=== PATIENT | female | born 1985 | race Caucasian/White ===

== ENCOUNTER → 2020-09-13 08:40 | Outpatient (BNVA) | payer OTHER, SELFPAY | PROVIDERS: PCP Internal Medicine; Visit Provider Surgery ==

== ENCOUNTER 2020-09-22 08:58 | Outpatient (REF) | payer OTHER, SELFPAY ==
[2020-09-13 20:11] VITALS: BMI 56.0
--- NOTE | 2020-09-21 10:33 | P.CONAN_ITS ---
Documented by User: Katlin Loja 09/21/20 10:34 HPI - Anesthesia Eval Consult details Narrative: 35yo F for Upper Endoscopy PMFSH Active Problems Active Problems: All Active Problems (Updated 09/13/20 @ 20:08 by Ambar Monet RN) Preoperative examination (Acute) Shortness of breath (Acute) BMI 50.0-59.9, adult (Acute) Morbid obesity due to excess calories (Acute) Past Medical History Medical History Abnormal endoscopy of upper gastrointestinal tract Anxiety Arthritis Back pain Depression GERD (gastroesophageal reflux disease) Morbid obesity due to excess calories Family History Family History Father Narcolepsy Narcolepsy and cataplexy Pulmonary embolism Mother COPD (chronic obstructive pulmonary disease) Asthma Brother Drug abuse Brother No problems noted. Daughter No problems noted. Son No problems noted. Maternal Aunt Lung cancer Surgical History Surgical History History of endoscopy History of removal of laparoscopic gastric banding device History of tubal ligation Hx of section Hx of laparoscopic gastric banding Status post laser ablation of incompetent vein Social History Social History Alcohol intake: current Alcohol intake frequency: a few times a week Alcohol type: wine Smoking Status: Never smoker Second Hand Smoke Exposure: No Use of substances other than those prescribed or required for medical reasons: No Advance Directives: No Advance Directives Information Provided: No Advance Directives on File: No Recently lost weight without trying: No Meds Allergies Allergy/AdvReac Type Severity Reaction Status Date / Time erythromycin base Allergy Severe VOMITING Verified 09/13/20 09:50 [ERYTHROMYCIN BASE] amoxicillin [AMOXICILLIN] Allergy Unknown RASH, hives Verified 09/13/20 09:50 almond Allergy Abdominal Verified 09/13/20 20:10 Pain banana Allergy Abdominal Verified 09/13/20 20:10 Pain pineapple Allergy Abdominal Verified 09/13/20 20:10 Pain milk AdvReac Abdominal Verified 09/13/20 20:10 Pain Azithromycin Allergy Unknown vomiting Uncoded 09/13/20 09:50 Erythromycin Allergy Unknown vomiting Uncoded 09/13/20 09:50 Home Medications Medication Instructions Recorded Confirmed Last Taken Type cetirizine 10 mg tablet 10 mg PO DAILY 09/13/20 09/13/20 Unknown History escitalopram oxalate 5 mg tablet 15 mg PO DAILY 09/13/20 09/13/20 Unknown History pantoprazole 20 mg tablet,delayed 20 mg PO DAILY 09/13/20 09/22/20 09/22/20 05:15 History release Exam Exam Date and Time: September 21, 2020 1033 Height,Weight and Vital Signs: Height 5 ft 3 in Weight 143.335 kg Assessment and Plan Assessment Anesthesia Assessment: Chart Reviewed Documented by User: Jefry Ambriz 09/22/20 07:16 [facility] Past Medical History Medical History Abnormal endoscopy of upper gastrointestinal tract Anxiety Arthritis Back pain Depression GERD (gastroesophageal reflux disease) Morbid obesity due to excess calories Family History Family History Father Narcolepsy Narcolepsy and cataplexy Pulmonary embolism Mother COPD (chronic obstructive pulmonary disease) Asthma Brother Drug abuse Brother No problems noted. Daughter No problems noted. Son No problems noted. Maternal Aunt Lung cancer Family history of problems with anesthesia: No Surgical History Surgical History History of endoscopy History of removal of laparoscopic gastric banding device History of tubal ligation Hx of section Hx of laparoscopic gastric banding Status post laser ablation of incompetent vein History of Problems with Anesthesia: Yes (PONV) Social History Social History Alcohol intake: current Alcohol intake frequency: a few times a week Alcohol type: wine Smoking Status: Never smoker Second Hand Smoke Exposure: No Use of substances other than those prescribed or required for medical reasons: No Advance Directives: No Advance Directives Information Provided: No Advance Directives on File: No Recently lost weight without trying: No Meds Allergies Allergy/AdvReac Type Severity Reaction Status Date / Time erythromycin base Allergy Severe VOMITING Verified 09/13/20 09:50 [ERYTHROMYCIN BASE] amoxicillin [AMOXICILLIN] Allergy Unknown RASH, hives Verified 09/13/20 09:50 almond Allergy Abdominal Verified 09/13/20 20:10 Pain banana Allergy Abdominal Verified 09/13/20 20:10 Pain pineapple Allergy Abdominal Verified 09/13/20 20:10 Pain milk AdvReac Abdominal Verified 09/13/20 20:10 Pain Azithromycin Allergy Unknown vomiting Uncoded 09/13/20 09:50 Erythromycin Allergy Unknown vomiting Uncoded 09/13/20 09:50 Home Medications Medication Instructions Recorded Confirmed Last Taken Type cetirizine 10 mg tablet 10 mg PO DAILY 09/13/20 09/13/20 Unknown History escitalopram oxalate 5 mg tablet 15 mg PO DAILY 09/13/20 09/13/20 Unknown History pantoprazole 20 mg tablet,delayed 20 mg PO DAILY 09/13/20 09/22/20 09/22/20 05:15 History release Exam Airway Mallampati Class: II TM Dist: <=3cm Neck ROM: Full Heart: ok Lungs: ok Assessment and Plan Assessment Anesthesia Assessment: Anesthesia Plan Discussed and Chart Reviewed Final Anesthetic Review NPO: Yes ASA Class: III Final Preanesthetic Review: No Changes in Pt Med Stat, Meds/Allgs Chart Reviewed, Consent Obtained/Reviewed and Anes Risks/Benef Reviewed Patient Risk: Intermediate Procedure Risk: Intermediate Anesthetic Plan Anesthetic Plan: MAC: Disposition: Standard PACU
--- NOTE | 2020-09-21 14:38 | MHC.SHP ---
Pre-Procedural Eval Section B Chief Complaint: reflux Allergies: Allergies Allergy/AdvReac Type Severity Reaction Status Date / Time erythromycin base Allergy Severe VOMITING Verified 09/13/20 09:50 [ERYTHROMYCIN BASE] amoxicillin [AMOXICILLIN] Allergy Unknown RASH, hives Verified 09/13/20 09:50 almond Allergy Abdominal Verified 09/13/20 20:10 Pain banana Allergy Abdominal Verified 09/13/20 20:10 Pain pineapple Allergy Abdominal Verified 09/13/20 20:10 Pain milk AdvReac Abdominal Verified 09/13/20 20:10 Pain Azithromycin Allergy Unknown vomiting Uncoded 09/13/20 09:50 Erythromycin Allergy Unknown vomiting Uncoded 09/13/20 09:50 Plan I have reviewed the history and physical and performed a pertinent physical examination on my patient. No changes have occurred unless specified.
--- NOTE | ~2020-09-22 | XR_ITS ---
EXAMINATION: XR CHEST CLINICAL INFORMATION: Shortness of breath COMPARISON: None TECHNIQUE: 2 views of the chest were obtained. FINDINGS: The lungs are clear. The vascularity is normal. There is no pneumothorax, airspace consolidation or groundglass opacity. The costophrenic sulci are clear. There is no effusion. The heart is normal in size. The hilar and mediastinal contours are unremarkable. There is borderline dextrocurvature midthoracic spine. XR/XR chest 2V IMPRESSION: Unremarkable examination.
[2020-09-22 06:41] VITALS: BP 156/94; PULSE 83; RESP 16; TEMP 35.7; O2SAT 98
[2020-09-22] MEDS: Lactated Ringers 1,000 ML 100 ML IVCONT (06:56)
[2020-09-22 08:04] VITALS: BP 140/86; PULSE 80; RESP 18; TEMP 36.5; O2SAT 97
--- NOTE | 2020-09-22 08:06 | PM.OP ---
Brief Operative Note Date of Service: 09/22/20 Pre-op diagnosis: Weight gain after gastric band removal Post-op diagnosis: other (Same and antral gastritis) Procedure: Esophagogastroduodenoscopy and antral biopsy x2 Implants: None Surgeon: Lacy Garcia MD Anesthesia: MAC (Propofol given by anesthesiologist) Estimated blood loss (mL): 1 Pathology: other (Antral biopsy x2) Condition: stable Disposition: PACU
[2020-09-22 08:19] VITALS: BP 138/87; PULSE 69; RESP 17; TEMP 36.5; O2SAT 100
--- NOTE | 2020-09-22 08:22 | OP_ITS ---
SURGEON: Lacy Garcia MD PREOPERATIVE DIAGNOSIS: POSTOPERATIVE DIAGNOSIS: PROCEDURE PERFORMED: Esophagogastroduodenoscopy and antral biopsy x2. ESTIMATED BLOOD LOSS: COMPLICATIONS: None. ANESTHESIA: Total intravenous anesthesia with propofol given by the anesthesiologist. ASSISTANTS: SPECIMENS: PRE-PROCEDURE DIAGNOSIS: Weight gain after removal of gastric band. POSTPROCEDURE DIAGNOSIS: Antral gastritis. FINDINGS: There were no evidence of gastric band erosion or mucosal lesions or hiatal hernia. There were some antral gastritis with erythema and granularity of the antrum. DESCRIPTION OF PROCEDURE: The patient was brought to the operating room, placed on the stretcher in the left lateral decubitus position. A safety time-out was performed. A bite block was placed between the teeth. Total intravenous anesthesia was administered using propofol by the anesthesiologist. Once the patient was adequately sedated, a gastroscope was placed into posterior oropharynx, passed on the esophagus, evaluating esophageal mucosa which was normal. The GE junction was located at 42 cm from the incisors. There was no evidence of hiatal hernia. Gastroscope was easily passed into the stomach and then retroflexed. There was no evidence of hiatal hernia. No mucosal lesions were noted proximally. The entirety of the gastric mucosa was evaluated and was normal with the exception of some increased erythema and granularity at the antrum, which was biopsied x2. The gastroscope was passed to the pre-pyloric region through the pylorus down to the 3rd portion of duodenum, all of which was normal. All of these portions of the upper endoscopy were documented using photo documentation. Gastroscope was retracted back to the stomach. Stomach was desufflated. The gastroscope was removed without difficulty. The patient tolerated the procedure well and was sent to recovery room in stable condition. CHEF: None. MD KAT Peña/MODL / [id number]
--- NOTE | 2020-09-22 09:15 | ECG_ITS ---
Test Reason : SOB Blood Pressure : / mmHG Vent. Rate : 060 BPM Atrial Rate : 060 BPM P-R Int : 142 ms QRS Dur : 082 ms QT Int : 432 ms P-R-T Axes : 020 044 037 degrees QTc Int : 432 ms Normal sinus rhythm Normal ECG No previous ECGs available Referred By: Lacy Garcia Electronically Signed By:Dwayne Guerra
[2020-09-22 09:50] LABS: MANUAL DIFF FLAG NO
[2020-09-22 10:04] LABS: Basophils Absolute Auto 0.1 X10*3/uL (0.0-0.2); Basophils Percent Auto 0.9 % (0-2); Eosinophils Absolute Auto 0.2 X10*3/uL (0.0-0.4); Eosinophils Percent Auto 2.7 % (0-4); Hematocrit 37.6 % (37-47); Hemoglobin 12.1 g/dl (12.0-16.0); Imm Gran Abs Auto 0.02 X10*3/uL (0.00-0.03); Imm Gran Pct Auto 0.4 % (0.0-0.4); Lymphocytes Absolute Auto 1.3 X10*3/uL (1.2-4.9); Lymphocytes Percent Auto 23.7 % (20-40); Mean Corpuscular HGB Conc 32.2 g/dl (31.0-35.0); Mean Corpuscular Hemoglobin 28.5 pg (27.0-33.0); Mean Corpuscular Volume 88.7 fL (80-98); Mean Platelet Volume 10.2 fL (9.4-12.3); Monocytes Absolute Auto 0.4 X10*3/uL (0.1-1.2); Monocytes Percent Auto 7.4 % (2-11); Neutrophils Absolute Auto 3.7 X10*3/uL (2.0-8.3); Neutrophils Percent Auto 64.9 % (45-73); Platelet Count 290 X10*3/uL (160-400); Red Blood Count 4.24 X10*6/uL (4.20-5.50); Red Cell Distribution Width 13.2 % (11.0-16.0); White Blood Count 5.7 X10*3/uL (4.8-10.8)
[2020-09-22 10:34] LABS: Alanine Aminotransferase 104 U/L (0-31); Alkaline Phosphatase 83 U/L (39-117); Anion Gap 10 (12-20); Aspartate Amino Transferase 82 U/L (5-31); Bilirubin Total 0.5 mg/dL (0.0-1.0); Blood Urea Nitrogen 15 mg/dL (9-16); C Reactive Protein 2.98 mg/dL (< or = 0.50); Calcium 9.1 mg/dL (8.4-10.2); Carbon Dioxide 29 mmol/L (22-29); Chloride 103 mmol/L (96-108); Cholesterol 219 mg/dL; Estimated Glomerular Filt Rate > 60; Glucose Fasting 103 mg/dL (60-99); HDL Cholesterol 63 mg/dL; Iron 101 mcg/dL (30-160); LDL Cholesterol Calculated 128 mg/dl; Percent Iron Saturation 25 % (15-50); Potassium 4.4 mmol/L (3.3-5.1); Sodium 138 mmol/L (135-145); Total Iron Binding Capacity 403 mcg/dL (228-428); Total Protein 6.9 g/dL (6.5-8.0); Triglycerides 143 mg/dL; Unsaturated Iron Binding 302 ug/dL
[2020-09-22 10:53] LABS: Vitamin B12 515 pg/mL (200-900)
[2020-09-22 10:54] LABS: Thyroid Stimulating Hormone 2.74 uIU/mL (0.32-4.0); Vitamin D 25-OH Total 20.8 ng/mL (>30)
[2020-09-24 10:37] LABS: Calcium (PTHI) 9.1 mg/dL (8.6-10.2); PTHI 53 pg/mL (14-64)
[2020-09-25 13:02] LABS: Vitamin B1 <6 nmol/L (8-30)
[2020-09-27 02:31] LABS: Vitamin A 54 mcg/dL (38-98)
[2020-09-28 00:52] LABS: Zinc 70 mcg/dL (60-130)
== END 2020-09-22 08:59 | disposition home or self-care (01) ==
LOC: HO.MDS 08:58
PROVIDERS: PCP Internal Medicine; Visit Provider Surgery
PROC: 0DJ08ZZ Inspection of Upper Intestinal Tract, Via Natural or Artificial Opening Endoscopic (ICD-10-PCS; CPT 43235; principal; 2020-09-22 07:30)
DX: Z01.818 Encounter for other preprocedural examination (principal); K29.50 Unspecified chronic gastritis without bleeding; K21.9 Gastro-esophageal reflux disease without esophagitis; R06.02 Shortness of breath; E66.01 Morbid (severe) obesity due to excess calories; Z68.43 Body mass index [BMI] 50.0-59.9, adult; Z88.1 Allergy status to other antibiotic agents; Z88.0 Allergy status to penicillin; Z91.018 Allergy to other foods; Z98.84 Bariatric surgery status; Z98.890 Other specified postprocedural states; Z79.899 Other long term (current) drug therapy
CPT/HCPCS: 43239; 36415; 71046; 80053; 80061; 82306; 82607; 83540; 83970; 84425; 84443; 84590; 84630; 85025; 86140; 88305; 88342; 93005; J2250; J3010

== ENCOUNTER → 2020-09-27 08:30 | Outpatient (BNVA) | payer OTHER, SELFPAY | PROVIDERS: PCP Internal Medicine; Visit Provider Surgery ==

== ENCOUNTER → 2020-10-11 08:10 | Outpatient (BNVA) | payer OTHER, SELFPAY | PROVIDERS: PCP Internal Medicine; Visit Provider Dietitian, Registered ==

== ENCOUNTER 2020-10-25 13:47 | Outpatient (REF) | payer OTHER, SELFPAY ==
[2020-10-25 15:42] LABS: Vitamin D 25-OH Total 35.7 ng/mL (>30)
[2020-10-29 11:42] LABS: Vitamin B1 121 nmol/L (8-30)
== END 2020-10-25 13:48 | disposition home or self-care (01) ==
LOC: HO.LAB 13:47
PROVIDERS: PCP Internal Medicine; Visit Provider Surgery
DX: Z01.818 Encounter for other preprocedural examination (principal); E51.9 Thiamine deficiency, unspecified; E55.9 Vitamin D deficiency, unspecified; Z79.899 Other long term (current) drug therapy; R06.02 Shortness of breath; K59.00 Constipation, unspecified; R12 Heartburn; Z71.3 Dietary counseling and surveillance; E66.01 Morbid (severe) obesity due to excess calories; Z68.43 Body mass index [BMI] 50.0-59.9, adult
CPT/HCPCS: 36415; 82306; 84425

== ENCOUNTER → 2020-11-01 09:36 | Outpatient (BNVA) | payer OTHER, SELFPAY | PROVIDERS: PCP Internal Medicine; Visit Provider Dietitian, Registered ==

== ENCOUNTER → 2020-11-15 14:28 | Outpatient (BNVA) | payer OTHER, SELFPAY | PROVIDERS: PCP Internal Medicine; Visit Provider Surgery ==

== ENCOUNTER → 2020-11-29 11:01 | Outpatient (BNVA) | payer OTHER, SELFPAY | PROVIDERS: PCP Internal Medicine; Visit Provider Surgery ==

== ENCOUNTER → 2020-12-20 14:33 | Outpatient (BNVA) | payer OTHER, SELFPAY | PROVIDERS: PCP Internal Medicine; Visit Provider Surgery ==

== ENCOUNTER → 2020-12-28 09:58 | Outpatient (BNVA) | payer OTHER, SELFPAY | PROVIDERS: PCP Internal Medicine; Visit Provider Surgery ==

== ENCOUNTER → 2021-01-19 09:30 | Outpatient (BNVA) | payer OTHER, SELFPAY | PROVIDERS: PCP Internal Medicine; Visit Provider Physician Assistant ==

== ENCOUNTER → 2021-01-25 09:42 | Outpatient (BNVA) | payer OTHER, SELFPAY | PROVIDERS: PCP Internal Medicine; Visit Provider Surgery ==

== ENCOUNTER → 2021-02-04 13:42 | Outpatient (BNVA) | payer OTHER, SELFPAY | PROVIDERS: PCP Internal Medicine; Visit Provider Surgery ==

== ENCOUNTER 2021-02-09 13:16 | Inpatient (IN) | payer OTHER, SELFPAY ==
[2021-01-31 09:26] VITALS: BMI 50.1
--- NOTE | 2021-02-04 13:15 | ECG_ITS ---
Test Reason : R06.02 Blood Pressure : / mmHG Vent. Rate : 081 BPM Atrial Rate : 081 BPM P-R Int : 138 ms QRS Dur : 082 ms QT Int : 396 ms P-R-T Axes : 066 038 035 degrees QTc Int : 460 ms Normal sinus rhythm Possible Left atrial enlargement Borderline ECG When compared with ECG of 22-SEP-2020 09:20, No significant change was found Referred By: Lacy Garcia Electronically Signed By:ERVIN LYONS MD
[2021-02-04 14:02] LABS: MANUAL DIFF FLAG NO
[2021-02-04 14:08] LABS: Basophils Percent Auto 0.5 % (0-2); Eosinophils Absolute Auto 0.2 X10*3/uL (0.0-0.4); Eosinophils Percent Auto 1.9 % (0-4); Hematocrit 38.5 % (37-47); Hemoglobin 12.4 g/dl (12.0-16.0); Imm Gran Abs Auto 0.07 X10*3/uL (0.00-0.03); Imm Gran Pct Auto 0.8 % (0.0-0.4); Lymphocytes Absolute Auto 1.6 X10*3/uL (1.2-4.9); Mean Corpuscular HGB Conc 32.2 g/dl (31.0-35.0); Mean Corpuscular Hemoglobin 28.1 pg (27.0-33.0); Mean Corpuscular Volume 87.1 fL (80-98); Mean Platelet Volume 10.4 fL (9.4-12.3); Monocytes Absolute Auto 0.6 X10*3/uL (0.1-1.2); Monocytes Percent Auto 6.5 % (2-11); Neutrophils Absolute Auto 6.2 X10*3/uL (2.0-8.3); Neutrophils Percent Auto 71.3 % (45-73); Platelet Count 250 X10*3/uL (160-400); Red Blood Count 4.42 X10*6/uL (4.20-5.50); Red Cell Distribution Width 12.9 % (11.0-16.0); White Blood Count 8.6 X10*3/uL (4.8-10.8)
[2021-02-04 14:12] LABS: Prothrombin Time 11.5 SEC (9.9-13.0)
[2021-02-04 14:15] LABS: Glucose Urine UA NEG (NEG); Leukocyte Esterase Urine NEG (NEG); Nitrite Urine NEG (NEG); Partial Thromboplastin Time 36.5 SEC (24.1-38.0); Specific Gravity - Urine 1.025 (1.005-1.025); Urine Blood NEG (NEG); Urine Ketones NEG (NEG); Urine Protein NEG (NEG-TRACE)
[2021-02-04 14:18] LABS: Appearance Urine HAZY; Color Urine YELLOW
[2021-02-04 14:19] LABS: UPreg QC Valid YES; Urine Pregnancy NEGATIVE (NEGATIVE)
[2021-02-04 14:29] LABS: Albumin Level 4.2 g/dL (3.5-5.0); Anion Gap 15 (12-20); Blood Urea Nitrogen 13 mg/dL (9-16); Calcium 9.6 mg/dL (8.4-10.2); Carbon Dioxide 25 mmol/L (22-29); Chloride 103 mmol/L (96-108); Creatinine Clr Calc Pharmacy 140.3; Estimated Glomerular Filt Rate > 60; Glucose Random 85 mg/dL (60-115); Potassium 4.3 mmol/L (3.3-5.1); Sodium 139 mmol/L (135-145)
--- NOTE | 2021-02-08 08:54 | P.CONAN_ITS ---
Documented by User: Katlin Loja 02/08/21 08:56 HPI - Anesthesia Eval Consult details Narrative: 36yo F for Gastrectomy Sleeve, EGD, Poss Diaphragmatic Hernia, Poss Ventral Hernia, Poss open PMFSH Active Problems Active Problems: All Active Problems (Updated 01/31/21 @ 09:35 by Manjula Sinclair) Preoperative examination (Acute) Shortness of breath (Acute) BMI 50.0-59.9, adult (Acute) Vitamin D deficiency (Acute) Vitamin B1 deficiency (Acute) Morbid obesity due to excess calories (Acute) Past Medical History Medical History Anxiety Arthritis Back pain COVID-19 vaccine series completed Depression GERD (gastroesophageal reflux disease) Morbid obesity due to excess calories Family History Family History Father Narcolepsy Narcolepsy and cataplexy Pulmonary embolism Mother COPD (chronic obstructive pulmonary disease) Asthma Brother Drug abuse Brother No problems noted. Daughter No problems noted. Son No problems noted. Maternal Aunt Lung cancer Family history of problems with anesthesia: No Surgical History Surgical History H/O LEEP History of endoscopy History of esophagogastroduodenoscopy (EGD) History of removal of laparoscopic gastric banding device History of tubal ligation Hx of section Hx of laparoscopic gastric banding Status post laser ablation of incompetent vein History of Problems with Anesthesia: Yes (PONV) Social History Social History Are you a primary senior care assistant to a significant other at home: No Do you presently have visiting nurse or other home services: No Alcohol intake: current Alcohol intake frequency: a few times a week Alcohol type: wine Patient Tobacco Use Status: Never used Tobacco Second Hand Smoke Exposure: No Use of substances other than those prescribed or required for medical reasons: No Meds Allergies Allergy/AdvReac Type Severity Reaction Status Date / Time erythromycin base Allergy Severe VOMITING Verified 01/31/21 08:40 [ERYTHROMYCIN BASE] amoxicillin [AMOXICILLIN] Allergy Unknown RASH, hives Verified 01/31/21 08:40 almond Allergy Abdominal Verified 01/31/21 08:40 Pain banana Allergy Abdominal Verified 01/31/21 08:40 Pain pineapple Allergy Abdominal Verified 01/31/21 08:40 Pain Azithromycin Allergy Unknown vomiting Uncoded 01/31/21 08:40 Home Medications Medication Instructions Recorded Confirmed Last Taken Type cetirizine 10 mg tablet 10 mg PO DAILY 09/13/20 01/31/21 Unknown History pantoprazole 20 mg tablet,delayed 20 mg PO DAILY 09/13/20 01/31/21 02/09/21 06:30 History release escitalopram oxalate 1 tab PO DAILY 01/31/21 01/31/21 Unknown History escitalopram oxalate 1 tab PO DAILY 01/31/21 01/31/21 Unknown History Exam Exam Date and Time: February 08, 2021 0854 Height,Weight and Vital Signs: Height 5 ft 3 in Weight 128.367 kg Pertinent Lab Results Pertinent Lab Results: Laboratory Tests 02/04/21 02/04/21 02/04/21 13:20 13:20 13:20 WBC 8.6 RBC 4.42 Hgb 12.4 Hct 38.5 MCV 87.1 MCH 28.1 MCHC 32.2 RDW 12.9 Plt Count 250 MPV 10.4 Immature Gran % (Auto) 0.8 H Neut % (Auto) 71.3 Lymph % (Auto) 19.0 L Shackelford % (Auto) 6.5 Eos % (Auto) 1.9 Baso % (Auto) 0.5 Lymph # (Auto) 1.6 Shackelford # (Auto) 0.6 Eos # (Auto) 0.2 Baso # (Auto) 0.0 Abs Immat Gran (auto) 0.07 H Absolute Neuts (auto) 6.2 Absolute Nucleated RBC 0.000 Nucleated RBC % (auto) 0.0 PT 11.5 INR 1.0 APTT 36.5 Sodium Potassium Chloride Carbon Dioxide Anion Gap BUN Creatinine Estim Creat Clear Calc Estimated GFR Random Glucose Calcium Albumin Urine Color YELLOW Urine Appearance HAZY Urine pH 6.0 Ur Specific Cutler 1.025 Urine Protein NEG Urine Glucose (UA) NEG Urine Ketones NEG Urine Blood NEG Urine Nitrite NEG Ur Leukocyte Esterase NEG Urine Test Blood Type Antibody Screen 02/04/21 02/04/21 02/04/21 13:20 13:20 13:20 WBC RBC Hgb Hct MCV MCH MCHC RDW Plt Count MPV Immature Gran % (Auto) Neut % (Auto) Lymph % (Auto) Shackelford % (Auto) Eos % (Auto) Baso % (Auto) Lymph # (Auto) Shackelford # (Auto) Eos # (Auto) Baso # (Auto) Abs Immat Gran (auto) Absolute Neuts (auto) Absolute Nucleated RBC Nucleated RBC % (auto) PT INR APTT Sodium 139 Potassium 4.3 Chloride 103 Carbon Dioxide 25 Anion Gap 15 BUN 13 Creatinine 0.71 Estim Creat Clear Calc 140.3 Estimated GFR > 60 Random Glucose 85 Calcium 9.6 Albumin 4.2 Urine Color Urine Appearance Urine pH Ur Specific Cutler Urine Protein Urine Glucose (UA) Urine Ketones Urine Blood Urine Nitrite Ur Leukocyte Esterase Urine Test NEGATIVE Blood Type B Positive Antibody Screen NEGATIVE Narrative Narrative: EKG 02/2021 Vent. Rate : 081 BPM Atrial Rate : 081 BPM P-R Int : 138 ms QRS Dur : 082 ms QT Int : 396 ms P-R-T Axes : 066 038 035 degrees QTc Int : 460 ms Normal sinus rhythm Possible Left atrial enlargement Borderline ECG When compared with ECG of 22-SEP-2020 09:20, No significant change was found Assessment and Plan Assessment Anesthesia Assessment: Chart Reviewed Documented by User: Emily Feliciano 02/09/21 10:11 [facility] Past Medical History Medical History Anxiety Arthritis Back pain COVID-19 vaccine series completed Depression GERD (gastroesophageal reflux disease) Morbid obesity due to excess calories Family History Family History Father Narcolepsy Narcolepsy and cataplexy Pulmonary embolism Mother COPD (chronic obstructive pulmonary disease) Asthma Brother Drug abuse Brother No problems noted. Daughter No problems noted. Son No problems noted. Maternal Aunt Lung cancer Surgical History Surgical History H/O LEEP History of endoscopy History of esophagogastroduodenoscopy (EGD) History of removal of laparoscopic gastric banding device History of tubal ligation Hx of section Hx of laparoscopic gastric banding Status post laser ablation of incompetent vein Social History Social History Are you a primary senior care assistant to a significant other at home: No Do you presently have visiting nurse or other home services: No Alcohol intake: current Alcohol intake frequency: a few times a week Alcohol type: wine Patient Tobacco Use Status: Never used Tobacco Second Hand Smoke Exposure: No Use of substances other than those prescribed or required for medical reasons: No Meds Allergies Allergy/AdvReac Type Severity Reaction Status Date / Time erythromycin base Allergy Severe VOMITING Verified 01/31/21 08:40 [ERYTHROMYCIN BASE] amoxicillin [AMOXICILLIN] Allergy Unknown RASH, hives Verified 01/31/21 08:40 almond Allergy Abdominal Verified 01/31/21 08:40 Pain banana Allergy Abdominal Verified 01/31/21 08:40 Pain pineapple Allergy Abdominal Verified 01/31/21 08:40 Pain Azithromycin Allergy Unknown vomiting Uncoded 01/31/21 08:40 Home Medications Medication Instructions Recorded Confirmed Last Taken Type cetirizine 10 mg tablet 10 mg PO DAILY 09/13/20 01/31/21 Unknown History pantoprazole 20 mg tablet,delayed 20 mg PO DAILY 09/13/20 01/31/21 02/09/21 06:30 History release escitalopram oxalate 1 tab PO DAILY 01/31/21 01/31/21 Unknown History escitalopram oxalate 1 tab PO DAILY 01/31/21 01/31/21 Unknown History Exam Airway Mallampati Class: II TM Dist: >3cm Neck ROM: Full Loose/Missing/Broken Teeth: No Heart: RRR Lungs: CTA Assessment and Plan Assessment Anesthesia Assessment: Anesthesia Plan Discussed and Chart Reviewed Final Anesthetic Review NPO: Yes ASA Class: III Final Preanesthetic Review: Meds/Allgs Chart Reviewed, Consent Obtained/Reviewed and Anes Risks/Benef Reviewed Patient Risk: Intermediate Procedure Risk: Intermediate Anesthetic Plan Anesthetic Plan: GA Disposition: Standard PACU
--- NOTE | 2021-02-08 12:58 | MHC.SHP ---
Pre-Procedural Eval Section A Date of Service: 02/08/21 Section B Chief Complaint: Morbid Severe Obesity Allergies: Allergies Allergy/AdvReac Type Severity Reaction Status Date / Time erythromycin base Allergy Severe VOMITING Verified 01/31/21 08:40 [ERYTHROMYCIN BASE] amoxicillin [AMOXICILLIN] Allergy Unknown RASH, hives Verified 01/31/21 08:40 almond Allergy Abdominal Verified 01/31/21 08:40 Pain banana Allergy Abdominal Verified 01/31/21 08:40 Pain pineapple Allergy Abdominal Verified 01/31/21 08:40 Pain Azithromycin Allergy Unknown vomiting Uncoded 01/31/21 08:40 Plan I have reviewed the history and physical and performed a pertinent physical examination on my patient. No changes have occurred unless specified.
[2021-02-09] VITALS (15 sets, daily range): BP systolic 128–190; BP diastolic 78–106; PULSE 74–109; RESP 14–20; TEMP 35.7–37; O2SAT 95–100
[2021-02-09] MEDS: Lactated Ringers 1,000 ML 100 ML IVCONT (09:12)
[2021-02-09 09:19] LABS: COVID-19 Test Negative (Negative); IDNOW Serial# 9DD0AD1C
--- NOTE | 2021-02-09 13:09 | P.BOP_ITS ---
Brief Operative Note Date of Service: 02/09/21 Pre-op diagnosis: morbid obesity BMI 50.1, previous history of gastric banding, gastroesophageal reflux disease Post-op diagnosis: other ( same and hiatal hernia) Procedure: laparoscopic sleeve gastrectomy, takedown of previous gastric fundoplication, hiatal hernia repair, Palomo block, and intraoperative endoscopy Implants: covidien natasha Surgeon: Lacy Garcia MD Anesthesia: GETA Was an Wood Grainer used for this Procedure?: No Wood Grainer: Myra Licona Estimated blood loss (mL): 20 Pathology: other ( partial gastrectomy) Condition: stable Disposition: PACU
--- NOTE | 2021-02-09 13:10 | W.PM.OPN ---
Operative Note Operative Note Date of Service: 02/09/21 Narrative: Patient was brought into the operating room and placed on the operating room table in the supine position. General anesthesia was induced. Normal DVT prophylaxis was instituted and the patient received 2 grams of cefotetan preoperatively. The abdomen was then prepped and draped in the normal sterile fashion. A safety time-out was performed. A mixture of 1% lidocaine with epinephrine and ?% Marcaine plain was used to anesthetize the planned incision site in the left upper quadrant. A #11 scalpel was used to make a 5 mm left upper quadrant transverse incision through which a veress needle was placed. Three pops were heard going through the fascia. A saline drop test was used to confirm that the veress needle was intraabdominal. An optiview technique was then used to place a 5mm port in the left upper quadrant. A 5 mm 30 degree laproscope was then placed through this port and the abdominal cavity was surveyed and was normal with the exception of a few omental adhesions to the lower abdominal wall. The patient was placed in reverse Trendelenburg positioning. A anastasiia liver retractor was then placed in the subxyphoid position and it was used to hold up the left lobe of the liver to the abdominal wall. There were adhesions of the underlying stomach to the overlying left lobe of the liver from previous gastric banding. The liver tractor was secured to the bed using the liver retractor plascencia. A DENNY block was then performed for pain control on the right side of the abdomen. A 5 mm port was placed in the right upper quadrant near the falciform ligament. A 12 mm port was then placed in the mid epigastrium. One additional 5 mm port was placed in the left upper quadrant just to the left of the placement of the first port. I then performed a DENNY block on the left side of the abdomen. I took down adhesions from the liver to the underlying stomach using the LigaSure device. I then opened up the previous tunnel from the gastric band thereby flattening out the stomach and undoing the previous gastric fundoplication. I then removed the epigastric fat pad; there was an about 2 cm anterior hiatal hernia noted. I reapproximated the left and right crura with a total of 2 stitches of 2-0 ethibond and a laparoscopic knot pusher. There was no residual hiatal hernia. I then opened up the angle of His. We then gained entry into the lesser sac about 4-5 cm from the pylorus. I had anesthesia place a 34 Kinyarwanda orogastric tube into the distal antrum to use as a sizing tool for gastric pouch size. I divided the short gastric vessels up to the angle of His. We then started the creation of the gastric pouch by firing a 60 mm purple load endostapler up the stomach about 4-5 cm from the pylorus. We completed the creation of the gastric pouch using a total of 5 firings of a 60 mm and 1 firing of a 45 mm purple load stapler. We had anesthesia remove the orogastric tube, then we clamped across the distal antrum using a fired 60 mm endostapler. We flattened the patient and then instilled normal saline surrounding the newly created staple line. I then performed an on-table endoscopy. I passed the gastroscopy into the posterior oropharynx and down the esophagus evaluating the esophageal mucosa which was normal. There was no evidence of hiatal hernia. I passed the gastroscope into the gastric pouch and insufflated the gastric pouch. There was healthy pink mucosa and no evidence of active bleeding. There was no evidence of leak on laparoscopy. I desufflated the gastric pouch and removed the endoscope. I removed the endostapler from the abdomen and suctioned the fluid from the left upper quadrant. I then removed the partial gastrectomy specimen through the epigastric 12 mm port site. I reapproximated the 12 mm port using a 0 maxon suture with a laparoscopic suture passer. I instilled local anesthetic into the fascial closure site and tied the suture down at a pressure of 8-10 mm of Hg. There was no residual fascial defect. We removed the liver retractor and the left upper quadrant 5 mm ports under direct visualization. There was no evidence of any active bleeding. I desufflated the abdomen through the last remaining port and removed the laparoscope and 5 mm port. We reapproximated all incisions with a 4-0 monocryl subcuticular stitch. We cleaned and dried the abdominal skin and applied dermabond skin glue. All count were correct at the end of the case. The patient was awake and in stable condition prior to extubation and transfer to the recovery room.
--- NOTE | 2021-02-09 13:22 | P.PNGS_ITS ---
Subjective Subjective Date of Service: 02/10/21 <Myra Licona PA-C - Last Filed: 02/09/21 13:29> 02/10/21 <Lacy Garcia MD - Last Filed: 02/10/21 09:36> Interval history: Patient is postop day 1. Status post laparoscopic sleeve gastrectomy and hiatal hernia repair doing well. Vital signs are within normal limits as well as postoperative laboratory values for postoperative day 1. patient is tolerating stage III diet without difficulty. She has been up and ambulating without difficulty and using her incentive spirometer. Pain is well controlled. On physical exam: Abdomen is soft obese nondistended mild appropriate incisional tenderness. Dermabond is in place. Extremities are warm well- perfused without edema or tenderness. Assessment and plan: This is a 36-year- old lady on postoperative day 1. Status post laparoscopic sleeve gastrectomy and hiatal hernia repair doing well. She will be discharged home to follow up me in the office in 2 weeks time frame. <Lacy Garcia MD - Last Filed: 02/10/21 09:36> Physical Exam Vital Signs: Vital Signs: Last Vital Signs Temp 98.1 F 02/09/21 13:11 Pulse 92 02/09/21 13:16 Resp 18 02/09/21 13:16 BP 147/86 H 02/09/21 13:16 Pulse Ox 100 02/09/21 13:16 Body Mass Index 50.1 <Myra Licona PA-C - Last Filed: 02/09/21 13:29> GI: Other: Abdomen is soft nondistended obese. Incisions are all clean and dry with Dermabond in place. There is mild appropriate incisional tenderness. <Lacy Garcia MD - Last Filed: 02/10/21 09:36> Extrem: Other: Nontender bilaterally without edema. <Lacy Garcia MD - Last Filed: 02/10/21 09:36> Progress Note: A&P Assessment and plan (1) Morbid obesity due to excess calories: Status: Acute <Myra Licona PA-C - Last Filed: 02/09/21 13:29> (2) Hiatal hernia: Status: Acute <Myra Licona PA-C - Last Filed: 02/09/21 13:29> (3) History of repair of hiatal hernia: Status: Acute <Myra Licona PA-C - Last Filed: 02/09/21 13:29> (4) S/P laparoscopic sleeve gastrectomy: Status: Acute <Myra Licona PA-C - Last Filed: 02/09/21 13:29> Assessment and Plan: This is a 36-year-old lady on postoperative day 1. Status post laparoscopic sleeve gastrectomy with hiatal hernia repair doing well. She will be discharged home to follow up with me in 2 weeks time frame. <Lacy Garcia MD - Last Filed: 02/10/21 09:36> Fall Risk Details Current Medications: Current Medications Generic Name Dose Route Start Last Admin Trade Name Freq PRN Reason Stop Dose Admin Famotidine 20 mg 02/09/21 21:00 Famotidine/Pf 20 Mg/2 Ml Vial IVPUSH BID GOKUL Lactated Ringer's 1,000 mls @ 125 mls/hr 02/09/21 13:15 Lr IVCONT .Q8H GOKUL Cefotetan Disodium 2 gm/ 50 mls @ 100 mls/hr 02/09/21 13:15 Sodium Chloride IV 02/09/21 13:44 POSTOP ONE Metoclopramide HCl 10 mg 02/09/21 13:15 Metoclopramide Hcl 10 Mg/2 Ml Vial IVPUSH Q6H PRN Nausea Ondansetron HCl 4 mg 02/09/21 13:15 Ondansetron Hcl 4 Mg/2 Ml Vial IVPUSH Q8H GOKUL Sodium Chloride 3 ml 02/09/21 16:00 0.9 % Sodium Chloride Flush 3 Ml Syringe IVFLUSH QSHIFT GOKUL <Myra Licona PA-C - Last Filed: 02/09/21 13:29> Time Spent With Patient Time: Total time spent is greater than 50% in coordination of care (as documented) at patient's floor/unit and/or counseling patient: <Myra Licona PA-C - Last Filed: 02/09/21 13:29> Time with patient: less than 15 minutes <Lacy Garcia MD - Last Filed: 02/10/21 09:36> Procedures Date of Service Date of Service: 02/10/21 <Lacy Garcia MD - Last Filed: 02/10/21 09:36> Quality Stroke Does the patient have a stroke diagnosis?: No <Lacy Garcia MD - Last Filed: 02/10/21 09:36> VTE Prior VTE?: No <Lacy Garcia MD - Last Filed: 02/10/21 09:36> VTE Risk Level:: Surgical - moderate <Lacy Garcia MD - Last Filed: 02/10/21 09:36> VTE Device Contraindication: N/A - Device Ordered <Lacy Garcia MD - Last Filed: 02/10/21 09:36> VTE Drug Contraindication: Treatment Not Indicated <Lacy Garcia MD - Last Filed: 02/10/21 09:36>
--- NOTE | 2021-02-09 13:29 | P.DS_ITS ---
DS: Providers Provider Date of Service: 02/10/21 Primary care physician: Wood Bowman MD DS: Diagnosis Discharge Diagnosis (1) Morbid obesity due to excess calories: Status: Acute (2) Hiatal hernia: Status: Acute (3) History of repair of hiatal hernia: Status: Acute (4) S/P laparoscopic sleeve gastrectomy: Status: Acute DS: Medications Discharge Medications Home Medications: Home Medications Medication Instructions Recorded Confirmed cetirizine 10 mg tablet 10 mg PO DAILY 09/13/20 01/31/21 pantoprazole 20 mg tablet,delayed 20 mg PO DAILY 09/13/20 01/31/21 release escitalopram oxalate 1 tab PO DAILY 01/31/21 01/31/21 escitalopram oxalate 1 tab PO DAILY 01/31/21 01/31/21 Previous Rx's Medication Instructions Recorded acetaminophen 500 mg tablet 1,000 mg PO Q6H PRN #30 tab 01/25/21 docusate sodium 100 mg capsule 100 mg PO BID #30 cap 01/25/21 ondansetron HCl 4 mg tablet 4 mg PO Q6H PRN #30 tab 01/25/21 phentermine 37.5 mg capsule 37.5 mg PO DAILY #30 cap 01/25/21 simethicone 80 mg chewable tablet 80 mg PO TID-QID PRN #30 tab 01/25/21 DS: Summary Time Spent with Patient Time attestation: Total time spent providing and/or coordinating discharge services: Discharge coordination time: Greater than 30 minutes Quality: Stroke Does the patient have a stroke diagnosis?: No Physical Exam Vital Signs: Vital Signs: Last Vital Signs Temp 98.1 F 02/09/21 13:11 Pulse 92 02/09/21 13:16 Resp 18 02/09/21 13:16 BP 147/86 H 02/09/21 13:16 Pulse Ox 100 02/09/21 13:16 Body Mass Index 50.1 DS: Data Data Completed and Pending Pending studies at discharge: Pending at discharge 02/09/21 12:52 Surgical [PTH] Routine Labs on day of discharge: Laboratory Results - last 24 hr 02/09/21 08:35 COVID-19 ([facility]) Negative COVID-19 Clin Com See Note Discharge Plan Discharge Patient Disposition: Home, Self-Care Discharge Diagnosis: obesity s/p LSG and HH repair Referrals: Wood Bowman MD [Primary Care Provider] - 1 Week Discharge Medications: Continued escitalopram oxalate 10 mg tablet 1 tab PO DAILY RF: 0 ondansetron HCl [Zofran] 4 mg tablet 4 mg PO Q6H PRN (Reason: nausea and vomiting) Qty: 30 RF: 1 acetaminophen [Tylenol Extra Strength] 500 mg tablet 1,000 mg PO Q6H PRN (Reason: pain) Qty: 30 RF: 1 simethicone [Gas Relief (simethicone)] 80 mg tablet,chewable 80 mg PO TID-QID PRN (Reason: abdominal distention) Qty: 30 RF: 1 docusate sodium [Colace] 100 mg capsule 100 mg PO BID Qty: 30 RF: 1 pantoprazole 20 mg tablet,delayed release (DR/EC) 20 mg PO DAILY RF: 0 cetirizine 10 mg tablet 10 mg PO DAILY RF: 0 Discontinued escitalopram oxalate 5 mg tablet 1 tab PO DAILY RF: 0 phentermine 37.5 mg capsule 37.5 mg PO DAILY Qty: 30 RF: 0 Discharge Orders: Discharge Order (Routine); Ordered 02/10/21 Ordered By: Myra Licona Diet: other Activity on Discharge: No heavy lifting Stand Alone Forms: Patient Portal Discharge page Activity Restrictions/Additional Instructions: Discharge Instructions 1. Please call your doctor or come back to the emergency room should any new symptoms arise. 2. You will receive a courtesy call from [facility] 24-48 hours after discharge. 3. Activity: abstain from alcohol, practice limited stair climbing, no bending, no driving, no exercise, no illicit substances, no lifting, no sex, no tub bath, no work. 4. Diet: continue stage 3 protein shakes until your [address] Garcia. 5. Dressing Change/Wound Care: Your incision is covered by surgical glue. If the area is tender, you may apply an ice pack for short intervals (no more than 20 minutes on, followed by at least 20 minutes off). Do not apply heat. Do not use creams, lotions, or topical antibiotics unless instructed to do so by your surgeon. These can cause infection or allergic reaction. 6. Call your doctor if: - Your temperature exceeds 101.5 F - You experience excessive pain or swelling - You have an unexpected reaction to medication - You have excessive bleeding - You experience continued vomiting/nausea - Your incision begins to separate - Your incision shows signs of infection such as increased redness, swelling, excessive pain, heat, or drainage (light blood or clear fluid is normal) 7. General instructions: - No lifting greater than 5 lbs for the next 4 weeks. - No driving within 24 hours of taking narcotic pain medications. - If you do not move your bowels in the next 2 days, please take milk of magnesia over the counter. Please follow the post op diet and do not advance your diet until you are seen in the office in about 2 weeks. - Please walk around your home every hour or two to prevent blood clots from forming in your legs. You do not need to wake from sleeping to walk. - Please sleep in a bed or couch to prevent kinking at the hips and knees. - Please take your incentive spirometer (your lung director workforce management) home with you and use it for the next few days to prevent pneumonias. - You may shower, no hot tubs, baths or swimming pools. - Please call the office with any questions or concerns such as increasing abdominal pain, fever, chills, shortness of breath, chest pain, leg pain or swelling, or redness or drainage from your incisions. - Please stay on stage 3 diet which includes sugar free clear liquids such as ice pops and jello and broth and crystal light. Avoid all carbonation. Please drink 3 protein shakes with at least 25-30 grams of protein daily or 3 of the Celebrate 4:1 shakes which can be purchased in our office. The Celebrate shakes have all of the bariatric vitamins you need if you consume these shakes. If you are drinking other protein shakes, you will need to purchase the Celebrate multivitamins and calcium that we provide in the office (they will provide all the vitamins you need). Please make sure you are consuming at least 40-60 ounces of water in addition to your 3 protein shakes daily. 8. Do not hesitate to contact the office with any questions at . The patient's medical history has been reviewed and they are considered low risk for post op DVT and therefore DVT prophylaxis is not considered necessary. Travel after surgery was reviewed. The patient has not disclosed any travel plans during the first 30 days after surgery and they have been advised that within the first 30 days after surgery any bus, plane, train or car travel over 2 hours in duration is contraindicated due to the possibility of developing blood clots from immobility. Any travel, needs to include periods of ambulation of 10 minutes in duration every 2 hours. The patient was instructed to discuss any plans for travel during this period with their bariatric surgeon. Discharge Summary Date of Service: 02/10/21 Pre-op diagnosis: morbid obesity BMI 50.1, previous history of gastric banding, gastroesophageal reflux disease Post-op diagnosis: other ( same and hiatal hernia) Procedure: laparoscopic sleeve gastrectomy, takedown of previous gastric fundoplication, hiatal hernia repair, Palomo block, and intraoperative endoscopy Discharge Medications: 1. Simethicone 80mg tablet chewable (Si tablet every 6 hours orally for 7 days, #28, 1 RF) q4h prn gas 2. Acetaminophen 500 mg tablet (Si tablets as needed every 6 hours orally for 30 days, #240, 0 RF) 3. Ondansetron 4 mg tablet disintegrating (Si tablet every 6 hours orally for 7 days, #28, 1 RF) 4. Colace 100 mg capsule (Si capsule twice a day for 30 days, #60, 2 RF) 5. Pepcid 20 mg chewable tablet (Si tablet twice a day for 30 days, #60, 3 RF) Discharge Instructions: The patient should continue on the stage III bariatric diet, which includes 3 protein shakes of at least 20-30g of protein on a daily basis. The patient was encouraged to avoid drinking liquids with her protein shakes. They should wait 30-45 minutes in between her meals and drinking water. She should drink at least 40-60 ounces of water on a daily basis. They should ambulate while at home to avoid any blood clots in her lower extremities. They should call with any questions or concerns such as increase in abdominal pain, persistent nausea, vomiting, redness and drainage from her incisions, fever, chills, shortness of breast, or chest pain beyond what is normal for her. The patient should avoid all heavy lifting greater than 5 pounds for the next 4 weeks. The patient is already scheduled to follow up with me in 2 weeks time, but should call the office with any questions prior to that follow up appointment. The patient should not advance their diet until they are seen in the office for the 2 week appointment. Hospital Course: The patient was admitted after undergoing a LSG and HH repair. They were started on stage II (1 oz of fluid every 15 minutes) on POD #0. The next morning they were evaluated and started on stage III diet (protein shakes). All labs were within normal limits. On post-operative day #1 she was feeling better, nausea and epigastric pain improved and they were tolerating stage III bariatric diet well. The patient was discharged home. Discharge Disposition: Home. Care Plan Goals: weight loss Health Concerns: obesity Plan of Treatment: LSG Assessment: stable POD #1 Discharge Date/Time: 02/10/21 09:31
[2021-02-09] MEDS: HYDROmorphone HCl 0.5 MG/0.5 ML SYRINGE 0.25 MG IVPUSH ×4 (13:45→15:00)
[2021-02-09] MEDS: Famotidine/PF 20 MG/2 ML VIAL IVPUSH ×2 (14:00→21:19)
[2021-02-09] MEDS: ondansetron HCL 4 MG/2 ML VIAL IVPUSH ×2 (15:53→21:19)
[2021-02-09] MEDS: Lactated Ringers 1,000 ML 125 ML IVCONT ×2 (15:56→23:05)
[2021-02-09] MEDS: 0.9 % Sodium Chloride Flush 3 ML SYRINGE IVFLUSH (21:19)
[2021-02-09] MEDS: cefoTEtan disodium 2 GM in 0.9 % Sodium Chloride 50 ML IV (23:05)
[2021-02-10] VITALS: BP 160/86; PULSE 72; TEMP 36.6
[2021-02-10 03:53] VITALS: BP 147/92; PULSE 65; RESP 18; O2SAT 98
[2021-02-10] MEDS: Lactated Ringers 1,000 ML 125 ML IVCONT (05:26)
[2021-02-10] MEDS: ondansetron HCL 4 MG/2 ML VIAL IVPUSH (05:26)
[2021-02-10 05:55] LABS: MANUAL DIFF FLAG NO
[2021-02-10 05:58] LABS: Basophils Percent Auto 0.2 % (0-2); Hematocrit 35.1 % (37-47); Hemoglobin 11.8 g/dl (12.0-16.0); Imm Gran Abs Auto 0.07 X10*3/uL (0.00-0.03); Imm Gran Pct Auto 0.6 % (0.0-0.4); Lymphocytes Absolute Auto 1.2 X10*3/uL (1.2-4.9); Lymphocytes Percent Auto 10.2 % (20-40); Mean Corpuscular HGB Conc 33.6 g/dl (31.0-35.0); Mean Corpuscular Hemoglobin 29.1 pg (27.0-33.0); Mean Corpuscular Volume 86.7 fL (80-98); Mean Platelet Volume 9.8 fL (9.4-12.3); Monocytes Absolute Auto 0.8 X10*3/uL (0.1-1.2); Monocytes Percent Auto 6.4 % (2-11); Neutrophils Percent Auto 82.6 % (45-73); Platelet Count 276 X10*3/uL (160-400); Red Blood Count 4.05 X10*6/uL (4.20-5.50); Red Cell Distribution Width 12.9 % (11.0-16.0); White Blood Count 12.1 X10*3/uL (4.8-10.8)
[2021-02-10 06:32] LABS: Anion Gap 12 (12-20); Blood Urea Nitrogen 7 mg/dL (9-16); Calcium 8.7 mg/dL (8.4-10.2); Carbon Dioxide 25 mmol/L (22-29); Chloride 104 mmol/L (96-108); Creatinine Clr Calc Pharmacy 146.5; Estimated Glomerular Filt Rate > 60; Glucose Random 100 mg/dL (60-115); Sodium 137 mmol/L (135-145)
[2021-02-10] MEDS: Famotidine/PF 20 MG/2 ML VIAL IVPUSH (07:06)
[2021-02-10 07:19] VITALS: BP 154/88; PULSE 64; RESP 16; TEMP 36.3; O2SAT 99
--- NOTE | 2021-02-10 09:06 | MHC.CM.PN ---
EMR REVIEWED, PT ADMITTED S/P LAP SLEEVE GASTRECTOMY, HIATAL HERNIA REPAIR, INTRAOP ENDOSCOPY AND TAKEDOWN OF PREVIOUS GASTRIC FUNDOPLICATION, CM MET W/PT WHO WORKS AT [facility] [place], LIVES W/ AND TWO SMALL CHILDREN, PT IS INDEPENDENT W/ALL CARE, NO DME OR HOME SERVICES, PT DOES NOT ANTICIPATE ANY NEEDS AFTER D/C, PT VERIFIES PCP AND HAS COMPLETED HCP W/CM. D/C PLAN: HOME SELF-CARE TODAY, PT CURRENTLY PREPARING FOR D/C, FAMILY FOR TRANSPORT. PCP: CAIN CARRENO HCP: FRANCISCO KURTZ (SPOUSE) [phone] ALTERNATE: TARIQ PASCUAL [phone]
== END 2021-02-10 09:31 | disposition home or self-care (01) | DRG 621 ==
LOC: HO.SSSA 13:40 → HO.S3 15:01
PROVIDERS: Physician Assistant; Admitting Provider Surgery; PCP Internal Medicine; Visit Provider Surgery
PROC: 0DB64Z3 Excision of Stomach, Percutaneous Endoscopic Approach, Vertical (ICD-10-PCS; CPT 43845; principal; 2021-02-09 10:00)
DX: E66.01 Morbid (severe) obesity due to excess calories (principal); K21.9 Gastro-esophageal reflux disease without esophagitis; K44.9 Diaphragmatic hernia without obstruction or gangrene; Z68.43 Body mass index [BMI] 50.0-59.9, adult; Z98.84 Bariatric surgery status; Z20.822 Contact with and (suspected) exposure to COVID-19; Z88.0 Allergy status to penicillin; Z79.899 Other long term (current) drug therapy
CPT/HCPCS: 36415; 80048; 81003; 81025; 82040; 85025; 85610; 85730; 86850; 86900; 86901; 87635; 88307; 88342; 93005; 99024; C1776; J0131; J1100; J1170; J2250; J2405; J2550; J3010

== ENCOUNTER → 2021-02-25 13:27 | Outpatient (BNVA) | payer OTHER, SELFPAY | PROVIDERS: PCP Internal Medicine; Visit Provider Surgery ==

== ENCOUNTER → 2021-03-21 11:10 | Outpatient (BNVA) | payer OTHER, SELFPAY | PROVIDERS: PCP Internal Medicine; Referring Provider Internal Medicine; Visit Provider Surgery ==

== ENCOUNTER → 2021-04-12 11:44 | Outpatient (BNVA) | payer OTHER, SELFPAY | PROVIDERS: PCP Internal Medicine; Visit Provider Dietitian, Registered | DX: E66.01 Morbid (severe) obesity due to excess calories (principal) | CPT/HCPCS: 97803 ==

== ENCOUNTER → 2021-05-09 10:10 | Outpatient (BNVA) | payer OTHER, SELFPAY | PROVIDERS: PCP Internal Medicine; Visit Provider Surgery ==

== ENCOUNTER 2022-03-27 13:47 | Outpatient (REF) | payer OTHER, SELFPAY ==
[2022-03-27 14:34] LABS: Influenza A PCR NEGATIVE (Negative); Influenza B PCR NEGATIVE (Negative); Resp Syncy Virus RNA Qual PCR NEGATIVE (Negative); SARS COV2 PCR INHOUSE NEGATIVE (Negative)
== END 2022-03-27 13:48 | disposition home or self-care (01) ==
LOC: HO.LNP 13:47
PROVIDERS: Visit Provider Nurse Practitioner Family
DX: J01.90 Acute sinusitis, unspecified (principal); Z20.822 Contact with and (suspected) exposure to COVID-19
CPT/HCPCS: 0241U

== ENCOUNTER 2024-08-12 13:06 | Outpatient (AMB) | payer OTHER, SELFPAY ==
--- NOTE | 2024-08-12 13:10 | AM.OFFWIN_ITS ---
Intake Vital Signs 08/12/24 13:11 Height 5 ft 3 in Weight 278 lb BMI 49.2 BP 118/72 Blood Pressure Location Rt brachial Position Sitting Pulse 102 H Pulse Source Pulse Oximeter Temp 98.5 F Temp Source Oral Pulse Oximetry (%) 97 Oxygen Delivery Method Room Air Intake Visit Reasons: EP-sinus and lt ear infection Intake Note: Pt is here today c/o sinus congestion and Lt ear pain Patient Tobacco Use Status: Never used Tobacco Allergies erythromycin base [ERYTHROMYCIN BASE] Allergy (Severe, Verified 08/12/24 13:15) VOMITING amoxicillin [AMOXICILLIN] Allergy (Unknown, Verified 08/12/24 13:15) RASH, hives almond Allergy (Verified 08/12/24 13:15) Abdominal Pain banana Allergy (Verified 08/12/24 13:15) Abdominal Pain pineapple Allergy (Verified 08/12/24 13:15) Abdominal Pain Azithromycin Allergy (Unknown, Uncoded 08/12/24 13:15) vomiting HPI HPI Comments History of Present Illness Details History - The patient is a 39-year-old female pr esenting with sinus and ear infection symptoms. - Infection symptoms for ear and sinuses recur with cold episodes and began with throat irritation several days prior, worsening with systemic symptoms. - Current auditory symptoms included ear crackling; deny fever but describe thermal discomfort. - Previous negative COVID-19 test; denie s respiratory distress or obstructive pulmonary history. - Hypersensitivity to amoxicillin; typic ally managed with doxycycline. - Regular use of Flonase, noted misuse c oncerns, supplements with saline. - pt reports history of cefdinir use not ed, no severe allergic response. Physical Exam General: Cooperative, healthy appearing, comfortable and no acute distress Orientation/consciousness: Patient oriented x3 Limitations: No limitations Head: Normal to inspection Ears: Hearing grossly normal bilaterally, external ears normal, TM;s with erythema, bulging and slight purulent effusions Nose: Normal external nose present, Normal nares present and No nasal discharge present Face and sinus: Normal facial exam and Yes sinuses ttp Mouth: Normal oral and palatal mucosa present and moist mucous membranes Throat: Yes tonsils normal, Yes uvula midline. Posterior oropharynx erythema Eyes: Appearance normal, both eyes and all related structures Neck: Normal visual inspection Respiratory: Clear to auscultation bilaterally. Normal respiratory effort, able to speak in complete sentences, Actively coughing, no respiratory distress, not tachypneic, no tripod positioning and no use of accessory muscles Cardiovascular: Regular rate and rhythm. Normal S1 and S2 Skin: No rashes or lesions noted Neuro: Patient oriented x3 Extremities: Normal to inspection and Yes no clubbing, cyanosis or edema PFSH Medical History Anxiety Arthritis Back pain COVID-19 vaccine series completed Depression GERD (gastroesophageal reflux disease) Hiatal hernia Morbid obesity due to excess calories Surgical History H/O LEEP History of endoscopy History of esophagogastroduodenoscopy (EGD) History of removal of laparoscopic gastric banding device History of repair of hiatal hernia History of tubal ligation Hx of section Hx of laparoscopic gastric banding S/P laparoscopic sleeve gastrectomy Status post laser ablation of incompetent vein Family History Father Narcolepsy Narcolepsy and cataplexy Pulmonary embolism Mother COPD (chronic obstructive pulmonary disease) Asthma Brother Drug abuse Brother No problems noted. Daughter No problems noted. Son No problems noted. Maternal Aunt Lung cancer Social History Are you a primary director of critical care to a significant other at home: No Do you presently have visiting nurse or other home services: No Alcohol intake: current Alcohol intake frequency: a few times a week Alcohol type: wine Patient Tobacco Use Status: Never used Tobacco Second Hand Smoke Exposure: No service: No Current occupational status: employed Review of Systems Const All systems reviewed & are unremarkable except as noted in HPI and below Physical Exam Vital Signs: Last Vital Signs Temp 98.5 F 08/12/24 13:11 Pulse 102 H 08/12/24 13:11 BP 118/72 08/12/24 13:11 Pulse Ox 97 08/12/24 13:11 Oxygen Delivery Method Room Air 08/12/24 13:11 BMI result Body Mass Index 49.2 Assessment & Plan Assessment & Plan (1) Acute serous otitis media, bilateral: Code(s): H65.03 - Acute serous otitis media, bilateral Qualifiers: Recurrence: non-recurrent Qualified Code(s): H65.03 - Acute serous otitis media, bilateral Plan: The patient presented with symptoms indicative of bilateral Acute Otitis Media and Sinusitis following a common cold. Due to an allergy to amoxicillin, cefdinir was prescribed at 300 mg twice daily for five days. Instruction was given on the correct use of Flonase for better sinus relief, and for routine sinus management, neti pot with distilled water, continuing nasal saline and usage of a humidifier was recommended. The infection appears mild, and the chosen treatment aims to prevent further progression. COVID-19 has been ruled out, focusing care on otic and sinus issues. A work note will be provided. Patient was informed and verbally consented to the use of an ambient scribe for clinic note documentation during this visit Medications: New cefdinir 300 mg PO Q12H 10 caps 0RF Coding Level of Care Code New Pt Level 3 (01874) Diagnoses Non-recurrent acute serous otitis media of both ears H65.03 Recurrence: non-recurrent
[2024-08-12 13:11] VITALS: BP 118/72; PULSE 102; TEMP 36.9; O2SAT 97; BMI 49.2
== END 2024-08-12 13:35 | disposition home or self-care (01) ==
PROVIDERS: Visit Provider Physician Assistant
DX: H65.03 Acute serous otitis media, bilateral (principal)

== ENCOUNTER → 2024-08-12 13:06 | Outpatient (BNVA) | payer OTHER, SELFPAY | PROVIDERS: Visit Provider Physician Assistant ==